=== PATIENT | male | born 1995 | race Caucasian/White ===

== ENCOUNTER 2020-06-10 16:01 | Emergency (ER) | payer MEDICAID, SELFPAY ==
--- NOTE | ~2020-06-10 | XR_ITS ---
EXAMINATION: RIGHT FOOT. LEFT RIBS WITH CHEST X-RAY. CLINICAL INFORMATION: Tenderness right first metatarsal. Rule out fracture. Fall. COMPARISON: None TECHNIQUE: 3 views right foot. Chest x-ray and left RIBS 4 views. FINDINGS: RIGHT FOOT: There is no visible acute fracture or dislocation involving the right first digit. Rest of the right foot is also unremarkable. The ankle mortise and the subtalar joints are normal on lateral view. The soft tissues are normal. CHEST AND LEFT RIBS: The lungs are hypoexpanded but clear of acute process. The heart size and pulmonary vascularity is within normal limits. Multiple views of left ribs reveal no visible acute fracture or bony abnormality. The soft tissues are normal. XR/XR ribs LT min 3V w CXR1V IMPRESSION: Unremarkable right foot exam. Unremarkable chest and left rib exam.
--- NOTE | ~2020-06-10 | XR_ITS ---
EXAMINATION: RIGHT FOOT. LEFT RIBS WITH CHEST X-RAY. CLINICAL INFORMATION: Tenderness right first metatarsal. Rule out fracture. Fall. COMPARISON: None TECHNIQUE: 3 views right foot. Chest x-ray and left RIBS 4 views. FINDINGS: RIGHT FOOT: There is no visible acute fracture or dislocation involving the right first digit. Rest of the right foot is also unremarkable. The ankle mortise and the subtalar joints are normal on lateral view. The soft tissues are normal. CHEST AND LEFT RIBS: The lungs are hypoexpanded but clear of acute process. The heart size and pulmonary vascularity is within normal limits. Multiple views of left ribs reveal no visible acute fracture or bony abnormality. The soft tissues are normal. XR/XR foot RT min 3V IMPRESSION: Unremarkable right foot exam. Unremarkable chest and left rib exam.
[2020-06-10 16:12] VITALS: BP 159/88; PULSE 105; RESP 18; TEMP 37.3; O2SAT 96; BMI 42.5
--- NOTE | 2020-06-10 19:35 | ED_ITS ---
HPI - General Adult General Chief complaint: Fall Stated complaint: fall Time Seen by Provider: 06/10/20 18:10 Source: patient Mode of arrival: ambulatory Limitations: no limitations History of Present Illness HPI narrative: 24-year-old male who presents emergency department for evaluation of injuries from a trip and fall downstairs. Patient states that he was at home and tripped and fell down 8 stairs, this occurred yesterday. He struck his left chest, right elbow and right foot on the stairs. He is currently complaining of pain in these areas, the pain is constant, dull and moderate intensity, worse with movement and with breathing. He denies shortness of breath. He denies dyspnea on exertion. Denies any head or neck injury. He took some Tylenol at home with relief of his pain. He states that his tetanus shot is up-to-date and he received a booster vaccination 2 years prior. Related Data Allergies Allergy/AdvReac Type Severity Reaction Status Date / Time No Known Allergies Allergy Unverified 12/01/19 18:47 [No Known Allergies*] Pt states no food/medication Allergy Unknown Uncoded 10/08/16 00:00 a Review of Systems Review of Systems: Yes all other systems are reviewed and are negative [facility] Past Medical History [facility] Narrative: Patient has no significant past medical history, denies tobacco, alcohol and drug use. He works for the [employer]. Medical History (Updated 06/10/20 @ 19:42 by Gabo Marshall MD) No known health problems Social History Social History Alcohol intake: never Smoked in Last 30 Days: No Use of substances other than those prescribed or required for medical reasons: No Advance Directives: No Advance Directives Information Provided: No Physical Exam Vital Signs: Vital Signs: Last Vital Signs Temp 99.1 F 06/10/20 16:12 Pulse 105 H 06/10/20 16:12 Resp 18 06/10/20 16:12 BP 159/88 H 06/10/20 16:12 Pulse Ox 96 06/10/20 16:12 Body Mass Index 42.5 Const: General: cooperative and healthy appearing Nutritional Appearance: overweight Orientation/consciousness: oriented to person and oriented to place Limitations: no limitations HENMT: Head: Yes normal to inspection, Yes normocephalic and Yes atraumatic Ears: external ears normal General nose exam: Normal external nose present Face and sinus: Yes normal facial exam Mouth: Normal oral and palatal mucosa present Throat: Yes posterior oropharynx normal Eyes: Periorbital: periorbital findings normal Eyelids: Yes eyelids normal Conjunctivae: conjunctivae normal Sclerae: sclerae normal Corneas: corneas normal Pupils: Equal, round and reactive pupils present Direct Ophthalmoscopy: normal light reflex Neck: Neck: Yes full ROM, Yes no lymphadenopathy, Yes no meningeal signs, Yes trachea midline and Yes supple Chest: Other: Left lateral chest wall tenderness with no ecchymosis or crepitus Chest palpation & inspection: normal inspection of the chest Resp: Effort & Inspection: normal respiratory effort and able to speak in complete sentences Auscultation: clear to auscultation bilaterally Cardio: Rate: regular rate Rhythm: regular rhythm Heart sounds: S1 normal heart sound present, S2 normal heart sound present and no murmurs GI: Inspection: Yes normal to inspection Palpation (GI): Soft to palpation, nontender, no guarding, not rigid and No hepatosplenomegaly present : General: Yes no CVA tenderness Back/Spine/Pelvis: Back: no CVA tenderness Cervical Spine: normal cervical lordosis Thoracic/Lumbar Spine: thoracic and lumbar spine normal to inspection Skin: Lesions: no lesions Rashes: no rashes Wounds: no wounds Neuro: General: oriented to person, oriented to place and no meningeal signs Cranial nerves: Yes CN's II-XII intact bilaterally and Yes Equal, round and reactive pupils present Cognition (Neuro): normal cognition Motor exam (neuro): 5/5 motor strength present throughout Extrem: Other: Patient has abrasions to both elbows, full range of motion with only minimal tenderness with upper extremity palpation, patient does have tenderness with palpation over the 1st metatarsal of the right foot with ecchymosis and no soft tissue swelling. General: Yes full ROM Psych: Appearance: well kempt Mental Status: mental status grossly normal Speech and movement: Normal speech and movement present Affect: normal affect Attitude: cooperative Thought process: Normal thought process present Thought content: Normal thought content present Course Course Course Narrative: 24-year-old male who fell down stairs yesterday who presents emergency department for evaluation of left-sided chest pain and right foot pain. Patient did have abrasions to his elbows bilaterally consistent with a fall, he also had tenderness with palpation of his right foot and left lateral chest wall. Chest x-ray with left rib series revealed no acute fracture or pneumothorax. Right foot x-ray revealed no acute fracture. I discussed these findings with the patient. Patient was advised to take ibuprofen Tylenol for pain. He was given verbal and printed instructions discharged home. Patient believes that he can not go back to work tomorrow. Discharge Plan Discharge Clinical Impression: Fall (on) (from) other stairs and steps, initial encounter Chest wall contusion Qualifiers: Encounter type: initial encounter Laterality: left Qualified Code(s): S20.212A - Contusion of left front wall of thorax, initial encounter Contusion of foot, right Qualifiers: Encounter type: initial encounter Qualified Code(s): S90.31XA - Contusion of right foot, initial encounter Patient Disposition: Home, Self-Care Instructions: Rib Fracture (ED), Foot Contusion (ED) Additional Instructions: The x-rays of your right foot and chest and ribs did not reveal any broken bones. Your pain is secondary to contusion/bruising. Follow the contusion instructions above. Take ibuprofen 200 mg pills, 3 pills every 6 hours as needed for pain. Take Tylenol (acetaminophen) 500 mg pills, 2 pills every 4 to 6 hours as needed for pain. Follow-up with your doctor in 2 days. Please return to the emergency department if your symptoms get worse or if you develop any symptoms that are concerning to you. Stand Alone Forms: Work/School Release
== END 2020-06-10 19:50 | disposition home or self-care (01) ==
PROVIDERS: Emergency Provider Emergency Medicine Emergency Medical Services; PCP Pediatrics
DX: S20.212A Contusion of left front wall of thorax, initial encounter (principal); S90.31XA Contusion of right foot, initial encounter; M79.671 Pain in right foot; R07.81 Pleurodynia; W10.9XXA Fall (on) (from) unspecified stairs and steps, initial encounter; Y93.9 Activity, unspecified; Y92.009 Unspecified place in unspecified non-institutional (private) residence as the place of occurrence of the external cause; Y99.9 Unspecified external cause status
CPT/HCPCS: 71101; 73630; 99283; 99284

== ENCOUNTER 2021-03-13 09:49 | Outpatient (REF) | payer OTHER, SELFPAY ==
--- NOTE | 2021-03-13 10:04 | EMG_ITS ---
This is a 25-year-old man with 1 month history of left upper extremity numbness and tingling in the left hand. Neurological examination is normal. No Tinel or Phalen sign. IMPRESSION: Carpal tunnel syndrome. Nerve conduction EMG study: Mild to moderate carpal tunnel syndrome on the left. Normal EMG of the left C5-T1 innervated muscles. MD MATT Franks/TIFFANIE / [id number]
== END 2021-03-13 09:50 | disposition home or self-care (01) ==
LOC: HO.NEURO 09:49
PROVIDERS: Visit Provider Emergency Medicine
DX: R20.0 Anesthesia of skin (principal)
CPT/HCPCS: 95885; 95910

== ENCOUNTER 2021-09-07 16:33 | Emergency (ER) | payer OTHER, SELFPAY ==
[2021-09-07 16:38] VITALS: BP 151/79; PULSE 99; RESP 18; TEMP 36.3; O2SAT 100; BMI 45.6
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
== END 2021-09-07 18:29 | disposition home or self-care (01) ==
PROVIDERS: Emergency Provider Emergency Medicine
DX: S01.81XA Laceration without foreign body of other part of head, initial encounter (principal); Y93.H3 Activity, building and construction; Y92.69 Other specified industrial and construction area as the place of occurrence of the external cause; Y99.0 Civilian activity done for income or pay
CPT/HCPCS: 12011; 99282; 99283

== ENCOUNTER → 2021-09-17 09:57 | Outpatient (BNVA) | payer MEDICAID, SELFPAY | PROVIDERS: PCP Pediatrics; Visit Provider Orthopaedic Surgery | DX: G56.03 Carpal tunnel syndrome, bilateral upper limbs (principal) | CPT/HCPCS: 99202 ==

== ENCOUNTER 2023-08-10 18:48 | Emergency (ER) | payer OTHER, SELFPAY ==
--- NOTE | ~2023-08-10 | CT_ITS ---
EXAMINATION: CT CERVICAL SPINE WITHOUT CONTRAST CLINICAL INFORMATION: Pain status post trauma COMPARISON: None available. TECHNIQUE: Multidetector CT scan of the cervical spine multiplanar reconstructions. This CT examination was performed using dose optimization techniques as appropriate, variously including the following: *Automated exposure control *Adjustment of mA and/or kV according to patient size (this includes techniques or standardized protocols for targeted exams where dose is matched to indication/reason for exam; i.e. extremities or head) *Use of iterative reconstruction technique DLP: 709 mGy-cm FINDINGS: Reversal of the normal cervical lordosis suggesting spasm. Vertebral heights and disc spaces are essentially preserved. C6-C7 disc space narrowing partially fused likely on a congenital basis. No osteophytes. No central canal narrowing grossly on CT imaging. Posterior elements intact. No fracture or subluxation. No soft tissue lesion. Lung apices clear. CT/CT cervical spine wo IV con IMPRESSION: No acute fracture or subluxation. Reversal of the normal cervical lordosis suggesting spasm. Fleischner guidelines were followed.
[2023-08-10 19:05] VITALS: BP 124/76; PULSE 76; RESP 18; TEMP 36.4; O2SAT 97; BMI 46.3
--- NOTE | 2023-08-10 19:05 | ED_ITS ---
HPI - General Adult General Chief complaint: Head Injury Stated complaint: hit head on concrete wall, neck pain Time Seen by Provider: 08/10/23 21:24 History of Present Illness HPI narrative: The patient is a 27-year-old male who was lifting weights in his basement. He was doing some kind of an incline bench press. He says that he had secured the chair very well and when he started lifting weights he fell backwards and struck the back of his head against a concrete wall. He had no loss of consciousness and he remembers the incident. He had some bleeding from the back of the scalp any has neck pain that is worse when he moves his neck. He has no numbness, tingling, weakness, burning in his extremities. Related Data Previous Rx's ?Medication ?Instructions ?Recorded ibuprofen 600 mg tablet 600 mg PO Q6H PRN pain #14 tabs 08/10/23 Allergies Allergy/AdvReac Type Severity Reaction Status Date / Time No Known Allergies Allergy Verified 08/10/23 19:09 [No Known Allergies*] Review of Systems Review of Systems: Yes all other systems are reviewed and are negative [facility] Past Medical History Medical History No known health problems Social History Social History (Updated 09/17/21 @ 10:14 by FLYNN Santoyo) Alcohol intake: never Patient Tobacco Use Status: Never used Tobacco Advance Directives: No Advance Directives Information Provided: No Do you have a plan to hurt others: No Plan Current occupational status: employed Current occupation: left hand/ [employer] Physical Exam ED Vital Signs: Vital Signs - 24 hr 08/10/23 19:05 08/10/23 21:30 Temperature 97.6 F 99.0 F Pulse Rate 76 71 Respiratory Rate 18 18 Blood Pressure 124/76 126/72 Pulse Oximetry 97 98 Oxygen Delivery Method Room Air Room Air BMI result Body Mass Index 46.3 Const Other: The patient is awake, alert, pleasant, cooperative. He does not appear ill or in distress. His mental status is normal and is demeanor is pleasant. HENMT Other: Patient has an abrasion to his occipital scalp. There is no raccoon eyes. No lomas sign. Both external auditory canals have cerumen that obscures the tympanic membranes Eyes Other: Pupils are round equal, conjunctivae are clear, extraocular movements intact Neck Other: The patient has no particular posterior C-spine tenderness but does report discomfort with moving his neck Resp Effort & Inspection: normal respiratory effort Auscultation: clear to auscultation bilaterally Cardio Rate: regular rate Rhythm: regular rhythm Heart sounds: S1 normal heart sound present and S2 normal heart sound present Skin Other: The skin is normal aside from the skin of the occipital scalp where there is a small abrasion. No full-thickness injury. Neuro Other: The patient is awake, alert, oriented, appropriate. Cranial nerves are intact. Normal strength and sensation is extremities. He is neurologically intact with a GCS of 15. Extrem Other: No injuries to the extremities. Course Course Course Narrative: This is a rapid medical exam performed by Lissa Cabral NP: Additional HPI, ROS, PE not included below will be deferred to primary provider. Patient is a 27-year-old male presenting to the ED with complaint of head injury and neck pain. States he was at the gym prior to arrival, chair fell back and he hit the back of his head on the concrete wall. Reports bleeding and complains of neck pain. Superficial abrasion noted to occiput. Patient is awake, alert, oriented x3. Denies blurred vision, double vision or other visual changes. Denies loss of consciousness. Denies nausea or vomiting. States neck pain is 7/10. Unknown last Tdap. Plan: tdap, CT c spine Medications Administered Discontinued Medications Generic Name Dose Route Start Last Admin Trade Name Freq PRN Reason Stop Dose Admin Diphtheria/Tetanus/Acell Pertussis 0.5 ml 08/10/23 19:10 08/10/23 21:47 Diphth,Pertus(Acell),Tet Adult 0.5 Ml Syringe IM 08/10/23 19:11 0.5 ml .ONCE ONE Administration Medical Decision Making Medical Decision Making MDM Narrative: The patient is here after sustaining a head injury that occurred when he was lifting weights and he struck the back of his head against a concrete wall. There was no loss of consciousness. He has no significant headache. His chief complaint is neck pain. Was no loss of consciousness, no amnesia to the episode, he has a normal mental status and a normal neurological exam. No raccoon eyes or lomas sign. Tympanic membranes were obscured by cerumen bilaterally. I do not think he needs neuroimaging for his head injury but a cervical spine CT has been ordered at triage for his neck pain. This shows reverse of the normal lordosis but no acute fracture. Clinically the patient looks well. I do not think he requires further imaging of any kind. Think he may be discharged with instructions to use acetaminophen and ibuprofen for his neck pain. With regard to his scalp abrasion he was given a tetanus update. He has given a work note for tomorrow off. He does not have a PCP. 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 He is advised to contact his insurance to try to get a PCP.. Discharge Plan Discharge Clinical Impression: Cervical strain, acute, Scalp abrasion Instructions: Cervical Sprain (ED), Abrasion (ED) Additional Instructions: Your neck will probably feel sore for a few days. You may use acetaminophen (Tylenol) and ibuprofen as needed for pain. You may feel more sore before you feel better. Sometimes the day after an injury is worse than the actual day of the injury itself. If in the morning you are having significant discomfort I think it would be reasonable for you to stay home from work and rest. Please work on finding a primary care doctor. It would be good to contact your insurance for a list of primary care doctors who accept your insurance. Return to the emergency room if worse. Prescriptions: New ibuprofen 600 mg tablet 600 mg PO Q6H PRN (Reason: pain) Qty: 14 0RF Stand Alone Forms: Work/School Release Print Language: Yakut
[2023-08-10 21:30] VITALS: BP 126/72; PULSE 71; RESP 18; TEMP 37.2; O2SAT 98
--- NOTE | 2023-08-10 21:31 | MHC.EDTECH ---
Hourly rounds and vitals completed,call mckeon in reach
[2023-08-10] MEDS: Diphth,Pertus(ACell),Tet Adult 0.5 ML SYRINGE IM (21:47)
[2023-08-10] MEDS: Ibuprofen 600 MG TABLET PO (22:11)
[2023-08-10] MEDS: Acetaminophen 325 MG TABLET 975 MG PO (22:11)
[2023-08-10 22:20] VITALS: BP 129/76; PULSE 79; RESP 16; TEMP 37.1; O2SAT 97
== END 2023-08-10 22:20 | disposition home or self-care (01) ==
PROVIDERS: Emergency Provider Emergency Medicine
DX: S16.1XXA Strain of muscle, fascia and tendon at neck level, initial encounter (principal); S00.01XA Abrasion of scalp, initial encounter; W07.XXXA Fall from chair, initial encounter; Y93.B3 Activity, free weights; Y92.008 Other place in unspecified non-institutional (private) residence as the place of occurrence of the external cause; Y99.9 Unspecified external cause status
CPT/HCPCS: 72125; 90471; 90715; 99284

== ENCOUNTER → 2024-01-14 14:25 | Outpatient (BNVA) | payer SELFPAY | PROVIDERS: Visit Provider Physician Assistant | DX: Z02.79 Encounter for issue of other medical certificate (principal) ==